=== PATIENT | female | born 1960 | race Caucasian/White ===

== ENCOUNTER 2017-10-25 16:44 | Emergency (ER) | payer OTHER ==
[2017-10-25 17:17] VITALS: TEMP 97.8; BMI 20.8
--- NOTE | 2017-10-25 17:18 | PDOC ---
Rapid Medical Evaluation Time Seen by Provider: 10/25/17 16:54 Medical Evaluation: 10/25/17 17:13 Healthy 56 year old female seen at [facility] yesterday for left eye redness and swelling, given oral and ophthalmic antibiotics. Symptoms not improving, seen again today and sent from urgent care with recommendation for ophthalmology evaluation. Complains that vision is "a little blurry". Left sclera/conjunctiva injected. Mild periorbital erythema and edema. To Main ED for further evaluation.
--- NOTE | 2017-10-25 17:58 | PDOC ---
History of Present Illness - General Chief Complaint: Eye Problem Stated Complaint: PCP SENT/EYE PROBLEM Time Seen by Provider: 10/25/17 16:54 History Source: Patient - History of Present Illness Initial Comments: 10/25/17 17:56 56 year old female with left eye swelling and pain x 4 days with worsening conjunctival redness and pain. patient also report pain to the eye with movement. patient was seen at [facility] started on Augmentin and tobramycin drops. patient now reports pain to the eye with movement and blurred vision. 10/25/17 18:15 Past History - Past Medical History Allergies/Adverse Reactions: Allergies Allergy/AdvReac Type Severity Reaction Status Date / Time No Known Allergies Allergy Verified 10/25/17 17:13 Home Medications: Ambulatory Orders Amoxicillin/Potassium Clav [Augmentin 875-125 Tablet] 1 each PO BID 10/25/17 Tobramycin 0.3% Ophth Oint [Tobrex *Ophthalmic Ointment*] 1 applic OU Q6H COPD: No Other medical history: DENIES. - Suicide/Smoking/Psychosocial Hx Smoking History: Never smoked *Physical Exam - Vital Signs Last Vital Signs Temp Pulse Resp BP Pulse Ox 97.8 F 69 19 142/96 100 10/25/17 17:14 10/25/17 17:14 10/25/17 17:14 10/25/17 17:14 10/25/17 17:14 - Physical Exam General Appearance: Yes: Appropriately Dressed HEENT: positive: Other (snellen 20/50 and Left eye amd 20/40 in right eye. + EOM pain with movement. left eye redness >right eye. ) Integumentary: positive: Normal Color, Dry, Warm Neurologic: positive: Fully Oriented, Alert, Normal Mood/Affect ED Treatment Course - LABORATORY CBC & Chemistry Diagram: 10/25/17 08:50 10/25/17 08:50 Medical Decision Making - Medical Decision Making 10/25/17 18:14 A: left eye pain r/o periorbital cellulitis P: patient transferred to the main ER. patient signed out to Dr. Gale 10/25/17 21:[address] Osuna.. recommends ophthalmology follow up in the office tomorrow am. will d/c patient home. *DC/Admit/Observation/Transfer Diagnosis at time of Disposition: Left eye pain - Discharge Dispostion Disposition: HOME - Referrals Referrals: Vikash Osuna MD [Staff Physician] - 24 hours (follow up tomorrow am in the office) - Patient Instructions Printed Discharge Instructions: DI for Eye Pain Additional Instructions: follow up in the eye doctors office tomorrow am. return to the ER if symptoms worsen. - Post Discharge Activity
[2017-10-25 19:07] LABS: MCH 30.9 pg (25.7-33.7); MCHC 32.8 g/dl (32.0-36.0); MEAN CELL VOLUME 94.2 fl (80-96); MEAN PLT VOLUME 10.1 fl (7.5-11.1); PLATELET COUNT 259 K/MM3 (134-434); RDW 13.7 % (11.6-15.6); WHITE BLOOD COUNT 8.6 K/mm3 (4.0-10.0)
[2017-10-25 19:17] LABS: INR 1.04 (0.82-1.09); PROTHROMBIN TIME (PATIENT) 11.7 SEC (9.98-11.88)
[2017-10-25 19:19] LABS: ACTIVATED PTT 28.2 SECONDS (26.9-34.4)
[2017-10-25 19:24] LABS: ALBUMIN 3.6 g/dl (3.4-5.0); ALK PHOS 73 U/L (45-117); ANION GAP 7 (8-16); BILIRUBIN,TOTAL 0.4 mg/dL (0.2-1.0); CALCIUM 8.6 mg/dL (8.5-10.1); CO2 26 mmol/L (21-32); CREATININE 0.6 mg/dL (0.55-1.02); GLUCOSE,RANDOM 92 mg/dL (74-106); SGOT/AST 10 U/L (15-37); SGPT/ALT 18 U/L (12-78)
[2017-10-25 21:14] VITALS: BP 138/82; PULSE 66
== END 2017-10-25 21:15 | disposition home or self-care (01) ==
LOC: JER 16:44 → JERFT 16:44 → JER 21:15
DX: H57.12 Ocular pain, left eye (principal)
CPT/HCPCS: 36415; 70480-TC; 80053; 85027; 85610; 85730; 99282-25

== ENCOUNTER 2021-07-17 20:25 | Emergency (ER) | payer OTHER ==
[2021-07-17 20:36] VITALS: BP 144/74; PULSE 78; TEMP 98; BMI 22.4
[2021-07-17] MEDS ORDERED: KETOROLAC TROMETHAMINE 15 MG/ML VIAL IVPUSH ONE (21:33)
[2021-07-17] MEDS ORDERED: KETOROLAC TROMETHAMINE 15 MG/ML VIAL ONE (22:02)
[2021-07-17 22:20] LABS: BASO % 0.5 % (0-2.0); EOS % 0.4 % (0-4.5); HEMATOCRIT 42.2 % (32.4-45.2); HEMOGLOBIN 14.5 GM/dL (10.7-15.3); LYMPH % 13.5 % (8-40); MCH 30.8 pg (25.7-33.7); MCHC 34.3 g/dl (32.0-36.0); MEAN CELL VOLUME 89.8 fl (80-96); MEAN PLT VOLUME 9.9 fl (7.5-11.1); MONO % 6.9 % (3.8-10.2); NEUT % 78.7 % (42.8-82.8); PLATELET COUNT 254 10^3/uL (134-434); RDW 13.5 % (11.6-15.6); WHITE BLOOD COUNT 10.7 K/mm3 (4.0-10.0)
[2021-07-17] MEDS ORDERED: ONDANSETRON 4 MG/2 ML VIAL IVPUSH ONE (22:40)
[2021-07-17 22:49] LABS: ALBUMIN 4.2 g/dl (3.4-5.0); CALCIUM 9.8 mg/dL (8.5-10.1)
[2021-07-17 22:50] LABS: BLOOD UREA NITROGEN 11.6 mg/dL (7-18)
[2021-07-17 22:50] LABS: EPI CELLS 25 /uL (0-25.1); HYALINE CASTS 0 /uL (0-3.1); PH,URINE 8.5 (5.0-8.0); URINE APPEARANCE CLOUDY; URINE BACTERIA 309 /uL (0-1359); URINE BILIRUBIN NEGATIVE (NEGATIVE); URINE COLOR YELLOW; URINE GLUCOSE (UA) NEGATIVE (NEGATIVE); URINE KETONE NEGATIVE (NEGATIVE); URINE LEUK ESTERASE 2+ (NEGATIVE); URINE NITRITE NEGATIVE (NEGATIVE); URINE PROTEIN NEGATIVE (NEGATIVE); URINE RBC 11 /uL (0-23.9); URINE UROBILINOGEN 0.2 mg/dL (0.2-1.0); URINE WBC 36 /uL (0-25.8)
[2021-07-17 22:52] LABS: CREATININE 0.9 mg/dL (0.55-1.3)
[2021-07-17 22:54] LABS: BILIRUBIN,TOTAL 0.6 mg/dL (0.2-1)
[2021-07-17] MEDS ORDERED: morphine CARPU-JECT 4 MG/1 ML DISP.SYRIN IVPUSH ONE (22:54)
[2021-07-17] MEDS ORDERED: morphine SULFATE 4 MG/ML VIAL ONE (22:55)
[2021-07-17] MEDS ORDERED: ONDANSETRON 4 MG/2 ML VIAL ONE (22:55)
[2021-07-18] MEDS ORDERED: CIPROFLOXACIN 500 MG TABLET (RESTRICTED TO ID) PO ONE (01:16)
[2021-07-18] MEDS ORDERED: metroNIDAZOLE 500 MG TABLET PO ONE (01:16)
[2021-07-18] MEDS ORDERED: metroNIDAZOLE 250 MG TABLET ONE (01:38)
== END 2021-07-18 02:11 | disposition home or self-care (01) ==
LOC: JER 20:25
PROC: 3E0333Z Introduction of Anti-inflammatory into Peripheral Vein, Percutaneous Approach (ICD-10-PCS; principal; 2021-07-17)
PROC: 3E033GC Introduction of Other Therapeutic Substance into Peripheral Vein, Percutaneous Approach (ICD-10-PCS; 2021-07-17)
PROC: 3E033GC Introduction of Other Therapeutic Substance into Peripheral Vein, Percutaneous Approach (ICD-10-PCS; 2021-07-17)
DX: K57.92 Diverticulitis of intestine, part unspecified, without perforation or abscess without bleeding (principal); N39.0 Urinary tract infection, site not specified; N83.209 Unspecified ovarian cyst, unspecified side
CPT/HCPCS: 36415; 74177-TC; 76830-TC; 80053; 81003; 83690; 85025; 87086; 93005; 93010; 99285-25; Q9967

== ENCOUNTER 2021-10-22 05:24 | Day surgery (SDC) | payer OTHER ==
[2021-10-22] MEDS ORDERED: BUPIVACAINE LIPOSOME/PF (EXPAREL) 266 MG/20 ML VIAL ONE (07:23)
[2021-10-22] MEDS ORDERED: BUPIVACAINE HCL/PF 0.5% (5MG/ML) 10 ML VIAL ONE (07:23)
[2021-10-22] MEDS ORDERED: MIDAZOLAM HCL 2 MG/2 ML SINGLE DOSE VIAL ONE ×3 (07:24→09:16)
[2021-10-22] MEDS ORDERED: GABAPENTIN 300 MG CAPSULE PO ONE (08:00)
[2021-10-22] MEDS ORDERED: ACETAMINOPHEN 1000 MG/100 ML VIAL IVPB ONE (08:00)
[2021-10-22] MEDS ORDERED: PHENAZOPYRIDINE HCL 100 MG TABLET (FP) PO ONE (08:00)
[2021-10-22] MEDS ORDERED: TRANEXAMIC ACID 1000 MG/10 ML VIAL IVPUSH ONE (08:00)
[2021-10-22 08:02] VITALS: BMI 20.3
[2021-10-22] MEDS ORDERED: PHENAZOPYRIDINE HCL 100 MG TABLET (FP) ONE (08:30)
[2021-10-22] MEDS ORDERED: GABAPENTIN 300 MG CAPSULE ONE (08:30)
[2021-10-22] MEDS ORDERED: ceFAZolin SODIUM 1 GM VIAL ONE ×2 (08:31→17:28)
[2021-10-22] MEDS ORDERED: ACETAMINOPHEN INJECTION 100 ML IVPB ONE (08:31)
[2021-10-22] MEDS ORDERED: CEFAZOLIN 2 GM in SODIUM CHLORIDE 100 ML IVPB ONE (09:00)
[2021-10-22] MEDS ORDERED: ROCURONIUM BROMIDE 50 MG/5 ML SYRINGE ONE (09:16)
[2021-10-22] MEDS ORDERED: PROPOFOL 20 ML ONE (09:16)
[2021-10-22] MEDS ORDERED: LIDOCAINE HCL/PF 2% SDV 5ML VIAL ONE (09:16)
[2021-10-22] MEDS ORDERED: DEXAMETHASONE SOD PHOSPHATE 4 MG/1 ML VIAL ONE (09:16)
[2021-10-22] MEDS ORDERED: ceFAZolin SODIUM 1 GM VIAL IVPB ONE (10:29)
[2021-10-22] MEDS ORDERED: NEOSTIGMINE METHYLSULFATE 0.5 MG/ML - 10 ML MDV ONE (12:00)
[2021-10-22] MEDS ORDERED: GLYCOPYRROLATE 0.2 MG/1 ML VIAL ONE (12:00)
[2021-10-22] MEDS ORDERED: KETOROLAC TROMETHAMINE 30 MG/1 ML VIAL ONE (12:09)
[2021-10-22] MEDS ORDERED: oxyCODONE HCL 5 MG TABLET PO PRN ×2 (12:35)
[2021-10-22] MEDS ORDERED: BISACODYL 5 MG TABLET.DR (FP) PO PRN (12:35)
[2021-10-22] MEDS ORDERED: SIMETHICONE 80 MG TAB.CHEW (FP) PO PRN (12:35)
[2021-10-22] MEDS ORDERED: ONDANSETRON 4 MG/2 ML VIAL IVPUSH PRN (12:35)
[2021-10-22] MEDS ORDERED: DOCUSATE SODIUM 100 MG CAPSULE (FP) PO PRN (12:35)
[2021-10-22] MEDS: SODIUM CHLORIDE 1,000 ML IV SCH ×2 (14:28→22:39)
[2021-10-22] MEDS ORDERED: DEXTROSE 5%-WATER - 50 ML IVPB ONE (17:28)
[2021-10-22] MEDS: CEFAZOLIN 1 GM in DEXTROSE 5%-WATER - 1 GM/50 ML IVPB IVPB SCH (17:29)
[2021-10-22] MEDS ORDERED: ACETAMINOPHEN 325 MG TABLET (FP) PO PRN (18:35)
[2021-10-22] MEDS ORDERED: IBUPROFEN 800 MG/8 ML IJ IVPB SCH (19:00)
[2021-10-22 21:43] LABS: HEMATOCRIT 39.1 % (32.4-45.2); HEMOGLOBIN 13.1 GM/dL (10.7-15.3); MCH 30.8 pg (25.7-33.7); MCHC 33.5 g/dl (32.0-36.0); MEAN CELL VOLUME 91.9 fl (80-96); MEAN PLT VOLUME 10.3 fl (7.5-11.1); PLATELET COUNT 220 10^3/uL (134-434); RBC 4.25 M/mm3 (3.60-5.2); RDW 13.4 % (11.6-15.6)
[2021-10-22 22:07] LABS: CALCIUM 8.8 mg/dL (8.5-10.1)
[2021-10-22 22:11] LABS: CREATININE 0.9 mg/dL (0.55-1.3)
[2021-10-23] MEDS ORDERED: DEXTROSE 5%-WATER - 50 ML IVPB ONE ×2 (01:50→09:55)
[2021-10-23] MEDS ORDERED: ceFAZolin SODIUM 1 GM VIAL ONE ×2 (01:50→09:55)
[2021-10-23] MEDS: CEFAZOLIN 1 GM in DEXTROSE 5%-WATER - 1 GM/50 ML IVPB IVPB SCH ×2 (01:55→09:59)
[2021-10-23 09:08] LABS: HEMATOCRIT 37.5 % (32.4-45.2); HEMOGLOBIN 12.4 GM/dL (10.7-15.3); MCH 30.6 pg (25.7-33.7); MCHC 33.1 g/dl (32.0-36.0); MEAN CELL VOLUME 92.5 fl (80-96); MEAN PLT VOLUME 9.9 fl (7.5-11.1); PLATELET COUNT 207 10^3/uL (134-434); RBC 4.06 M/mm3 (3.60-5.2); RDW 13.6 % (11.6-15.6); WHITE BLOOD COUNT 12.5 K/mm3 (4.0-10.0)
[2021-10-23 09:34] LABS: CALCIUM 8.7 mg/dL (8.5-10.1)
[2021-10-23 09:37] LABS: CREATININE 0.6 mg/dL (0.55-1.3)
[2021-10-23] MEDS ORDERED: amLODIPine BESYLATE 10 MG TABLET (FP) PO SCH (10:00)
[2021-10-23] MEDS ORDERED: ENOXAPARIN NA (PORCINE) 40 MG/0.4 ML DISP.SYRIN SQ SCH (10:00)
[2021-10-23 14:33] VITALS: BP 119/63; PULSE 73; TEMP 98.1
== END 2021-10-23 18:10 | disposition home or self-care (01) ==
LOC: JASUSAT 05:24 → J6S 14:48 → JASUSAT 10-23 18:10
PROVIDERS: ATTEND Obstetrics & Gynecology
PROC: 0UT9FZZ Resection of Uterus, Via Natural or Artificial Opening With Percutaneous Endoscopic Assistance (ICD-10-PCS; principal; 2021-10-22 10:00)
PROC: 0UT2FZZ Resection of Bilateral Ovaries, Via Natural or Artificial Opening With Percutaneous Endoscopic Assistance (ICD-10-PCS; 2021-10-22 10:00)
PROC: 0UT7FZZ Resection of Bilateral Fallopian Tubes, Via Natural or Artificial Opening With Percutaneous Endoscopic Assistance (ICD-10-PCS; 2021-10-22 10:00)
DX: D25.9 Leiomyoma of uterus, unspecified (principal); N72 Inflammatory disease of cervix uteri; N80.0 Endometriosis of uterus; D27.1 Benign neoplasm of left ovary
CPT/HCPCS: 36415; 80048; 85027; 86850; 86900; 86901; 88302-TC; 88305-TC; 88307-TC; 94010; 94760; J0131